=== PATIENT | female | born 1940 | race Caucasian/White ===

== ENCOUNTER → 2016-07-25 | Outpatient (CLI) | payer OTHER ==
[2016-07-25 10:50] LABS: BASOPHILS # (AUTO) 0.05 10*3/UL; BASOPHILS % (AUTO) 0.8 % (0-1); EOSINOPHILS % (AUTO) 1.9 % (0-8); HEMATOCRIT 42.1 % (37.0-47.0); HEMOGLOBIN 13.6 g/dL (12.0-16.0); IMM GRAN % (AUTO) 0.2 % (0-5); IMM GRAN# (AUTO) 0.01 10*3/UL; LYMPHOCYTES # (AUTO) 1.82 10*3/uL; LYMPHOCYTES % (AUTO) 28.4 % (10-50); MEAN CORPUSCULAR HEMOGLOBIN 28.9 PG (27-31); MEAN CORPUSCULAR HGB CONC 32.3 g/dL (33-37); MEAN PLATELET VOLUME 10.1 FL (7.4-12.2); MONOCYTES # (AUTO) 0.78 10*3/UL (0.3-0.8); MONOCYTES % (AUTO) 12.2 % (5-15); NEUTROPHILS # (AUTO) 3.63 10*3/UL; NEUTROPHILS % (AUTO) 56.5 % (50-80); WHITE BLOOD COUNT 6.41 10^3/uL (4.8-10.8)
[2016-07-25 10:51] LABS: PLATELET MORPHOLOGY COMMENT NORMAL MORPHOLOGY (NORM)
== END ==
LOC: MOB LAB 10:20
PROVIDERS: ATTEND Family Medicine
DX: R59.1 Generalized enlarged lymph nodes (principal)
CPT/HCPCS: 36415; 85025

== ENCOUNTER → 2016-07-29 | Outpatient (CLI) | payer OTHER ==
[2016-07-29 15:04] LABS: BUN/CREATININE RATIO 25.71 (6-20); CREATININE 0.7 mg/dL (0.50-1.20); POTASSIUM 3.8 meq/L (3.8-5.2)
--- NOTE | 2016-07-29 17:10 | DI ---
HISTORY: Lymphadenopathy. TECHNIQUE: Contiguous axial images of the neck were obtained after the administration of IV contrast and submitted for interpretation. FINDINGS: There is evidence of a right-sided cystic thyroid nodule measuring 1.3 cm. Lymph nodes ar e present bilaterally involving levels I, II, III, IV, and . The largest is measured on the right at level IB and measures 2.5 x 1.4 cm. There are no necrotic lymph nodes demonstrated. The right lingual tonsil is slightly prominent. No enhancing mass is seen on the mucosal surface. N o additional acute findings are identified in the imaged field. IMPRESSION: 1. Cystic 1.3 cm thyroid nodule on the right. Ultrasound could be performed to better characterize t his nodule as indicated. 2. Bilateral lymph nodes. 3. Slightly prominent right lingual tonsil.
[2016-08-02 22:36] LABS: BARONELLA QUINTANA IGG <1:128 titer (<1:128); BARTONELLA HENSELAE IGG <1:128 titer (<1:128); BARTONELLA HENSELAE IGM <1:20 titer (<1:20)
[2016-08-03 06:47] LABS: BARTONELLA QUINTANA IGM <1:20 titer (<1:20)
== END ==
LOC: CT 14:12
PROVIDERS: ATTEND Nurse Practitioner Family
DX: R59.1 Generalized enlarged lymph nodes (principal); E04.1 Nontoxic single thyroid nodule
CPT/HCPCS: 36415; 70491; 80048; 86611

== ENCOUNTER → 2016-08-04 | Outpatient (CLI) | payer OTHER ==
--- NOTE | 2016-08-04 10:54 | DI ---
US GDE NDL PLCMNT BX/ASP/INJ,08/04/2016 8:09 AM: Clinical History: Palpable lymph node involving the base of the right neck. Previous Exam: None at this facility. Procedure: Risks, benefits, and alternatives were explained to the patient and informed written conse nt was obtained. The right neck was prepped and draped in usual sterile fashion. 1% lidocaine was used for local anesthesia. A small skin incision was made. An 18-gauge core biopsy needle was then advanced into the lymph node. 2 total passes were made into t he lymph node with imaging guidance. The patient tolerated the procedure well and was sent home in good condition. Findings: Images are obtained demonstrating a hyperechoic needle within the lymph node. Impression: Successful right neck lymph node biopsy. Pathology pending.
== END ==
LOC: US 08:01
PROVIDERS: ATTEND Family Medicine
DX: R59.0 Localized enlarged lymph nodes (principal)
CPT/HCPCS: 76942

== ENCOUNTER → 2016-08-09 | Outpatient (CLI) | payer OTHER | LOC: MMPC 09:00 | PROVIDERS: ATTEND Family Medicine | DX: R59.1 Generalized enlarged lymph nodes (principal) | CPT/HCPCS: 99214; G0463 ==

== ENCOUNTER → 2016-08-10 | Outpatient (CLI) | payer OTHER | LOC: MMPC 11:11 | PROVIDERS: ATTEND Surgery | DX: C85.11 Unspecified B-cell lymphoma, lymph nodes of head, face, and neck (principal) | CPT/HCPCS: 99212; G0463 ==

== ENCOUNTER 2016-08-15 09:39 | Day surgery (SDC) | payer OTHER ==
[~2016-08-15 09:39] MED LIST: LIDOCAINE W/ SODIUM BICARB 0.5 ML SYR ONE; Lactated Ringers 1,000 ML PRIMARY IV ONE
[2016-08-15] MEDS ORDERED: MIDAZOLAM 5 MG/1 ML ONE (10:49)
[2016-08-15] MEDS ORDERED: fentaNYL Inj 100 MCG/2 ML VIAL ONE (10:50)
[2016-08-15] MEDS ORDERED: BUPIVACAINE 0.25% W/ EPI - 10 ML VIAL ONE (10:52)
--- NOTE | 2016-08-15 11:24 | GEN.OPNOTE ---
Operative Note Surgery Date: 08/15/16 Preoperative Diagnosis: Cervical adenopathy. Needle biopsy highly suspicious for B-cell lymphoma Postoperative Diagnosis: Same as above Procedure: Cervical lymph node biopsy superficial Surgeon: Pj Gresham MD Anesthesia Provider: Lana Chavez CRNA Anesthesia Type: Local, MAC Estimated Blood Loss (mL): 1 Fluids: LR please see anesthesia notes in EMR Pathology: Lymph node sent for pathology Indications: Patient is has progressive enlarging cervical adenopathy. Core biopsy was suspicious for B-cell lymphoma but not diagnostic. Findings: Cervical adenopathy the posterior chain Operative Summary: Patient is placed supine position given IV sedation prepped draped sterile fashion Timeout performed per protocol. I infiltrated local anesthetic which is quarter percent Marcaine total of 2 mL was used. At the patient had adequate anesthesia I made a skin incision overlying the cervical adenopathy. Blunt dissection was carried down to the lymph node. I then bluntly dissected off the lymph node. Individual vessels that were going into the lymph node were clamped divided and ligated with 3-0 Vicryl suture. Lymph node was bisected half when in RPMI other half fresh wound was closed in layers 2-0 Vicryl simple sutures and skin was reapproximated using 4-0 Monocryl continuous running subcutaneous stitch
[2016-08-15 11:50] VITALS: RESP 16
[2016-08-15 12:17] VITALS: TEMP 98.7
== END 2016-08-15 12:13 | disposition home or self-care (01) ==
LOC: SDSC 09:39
PROVIDERS: ATTEND Surgery
DX: R59.0 Localized enlarged lymph nodes (principal)
CPT/HCPCS: 38500 ×2; J2704; J3010; J2250; J7120

== ENCOUNTER → 2016-08-22 | Outpatient (CLI) | payer OTHER | LOC: MMPC 11:11 | PROVIDERS: ATTEND Surgery | DX: R59.0 Localized enlarged lymph nodes (principal) ==